=== PATIENT | male | born 1950 | race Caucasian/White ===

== ENCOUNTER 2020-06-14 09:50 | Outpatient (CLI) | payer MEDICARE, OTHER ==
--- NOTE | 2020-06-14 11:50 | RAD ---
CERVICAL SPINE 3 VIEWS: Date: 06/14/2020 HISTORY: Neck pain. DJD. FINDINGS: There are moderately severe degenerative changes at the C5-6 level. Mild degenerative changes seen at the other levels. At C5-6, there is loss of disc space, wedging of the C5 and C6 vertebra with promi nent anterior osteophytes and posterior spondylosis which encroach into the spinal canal. The other disc spaces are preserved. Mild spurring from the other vertebra. Slight posterolisthesis a t C5-6 which is associated with posterior spondylosis. Alignment at the other levels appear normally maintained. Facet hypertrophy is noted. IMPRESSION: Degenerative changes of the cervical spine, most pronounced at C5-6, as described. POS: AH
== END 2020-06-14 09:51 | disposition home or self-care (01) ==
LOC: MADRAD 09:50
PROVIDERS: ATTEND Orthopaedic Surgery
DX: M50.30 Other cervical disc degeneration, unspecified cervical region (principal); M47.812 Spondylosis without myelopathy or radiculopathy, cervical region
CPT/HCPCS: 72040